=== PATIENT | male | born 1955 | race Caucasian/White ===

== ENCOUNTER 2017-04-16 09:57 | Emergency (ER) | payer BC ==
[~2017-04-16] VITALS: Ht 167.6 cm; Wt 58.0 kg
[2017-04-16 10:03] VITALS: TEMP 36.7; O2SAT 98; Ht 167.6 cm; Wt 58.0 kg
[2017-04-16] MEDS ORDERED: PROPARACAINE HCL 0.5% OP SOLN 15 ML BTL OP STA (10:23)
[2017-04-16] MEDS ORDERED: CIPROFLOXACIN HCL 0.3% OP SOLN 2.5 ML BTL OP STA (10:38)
[2017-04-16] MEDS ORDERED: DIPHTHERIA/TETANUS/PERTUSSIS 0.5 ML SYR/VIAL IM. ONE (10:45)
--- NOTE | 2017-04-16 11:36 | EMERGENCY ROOM VISIT NOTE ---
ED Visit Note First contact with patient: 10:10 CHIEF COMPLAINT: Eye pain HISTORY OF PRESENT ILLNESS: This 61-year-old male patient presents to the emergency department complaining of pain in the right eye that started last night. There has been a constant moderate pain and irritation, redness and tearing in the eye. There is a mild blurring of vision at times and light bothers the eye. The vision has not been decreased over all. The patient does not wear glasses or wear contacts. The patient rates the pain as itching and discomfort and for/10. The patient has not had previous injuries to this eye. Tetanus shot is not up to date. REVIEW OF SYSTEMS: A 6 system review of systems was completed with positives and pertinent negatives listed in the HPI. ALLERGIES: See chart MEDICATIONS: See Chart PMH: See chart SOCIAL HISTORY: See chart PHYSICAL EXAM: Vital Signs: Reviewed Nurse's notes, vital signs stable. Visual acuity 20/40 and left eye, 20/50 in right eye, 20/50 in both eyes. GENERAL: This is a pleasant and cooperative gentleman, in no acute distress, but who is uncomfortable from the eye problem. Well-developed well-nourished. EYES: The pupils are equal round and reactive to light and accommodation. EOMs are full and without tenderness. There is discharge of clear tears from the right eye which is injected. There is photophobia in the right eye. There is a small vera of appears to be dirt found under the eyelid after lid eversion, this was easily removed and patient reported improved discomfort immediately after the foreign body was removed. Funduscopic exam reveals no hemorrhages, papilledema , or other abnormalities. No foreign body was seen embedded in the cornea under slit lamp exam. The cornea was clear and no hyphema was seen. Fluorescein uptake was observed with ultraviolet light significant for a corneal abrasion at 6 o'clock position overlying the iris. EMERGENCY DEPARTMENT COURSE: I examined the patient. Alcaine 2 drops were placed in the patient's right eye. A slit lamp exam was performed as above. Ciloxan two drops was placed in the patient's right eye. The patient's tetanus was updated. Patient was noted to be hypertensive on vital signs today, he currently does not follow with a PCP, but states he is working on getting one where he lives. I instructed him to continue this process and to follow up regarding his blood pressure as soon as possible. The patient was discharged home in good condition and ambulatory. Current/Historical Medications No Active Prescriptions or Reported Meds Allergies Coded Allergies: No Known Allergies (Unverified , 12/10/13) Vital Signs Date Time Temp Pulse Resp B/P (MAP) Pulse Ox O2 Delivery O2 Flow Rate FiO2 04/16/17 11:40 88 16 157/81 04/16/17 10:03 36.7 77 18 166/91 98 Room Air Medications Administered Medications (Trade) Dose Ordered Sig/Yadi Route Start Time Stop Time Status Last Admin Dose Admin Proparacaine HCl (Alcaine 0.5% Oph Soln) 2 drops NOW STAT OP 04/16/17 10:23 04/16/17 10:24 DC 04/16/17 10:28 2 DROPS Ciprofloxacin HCl (Ciprofloxacin 0.3% Op Soln) 2 drops NOW STAT OP 04/16/17 10:38 04/16/17 10:40 DC 04/16/17 11:04 2 DROPS Diphtheria/ Pertussis/Tetanus Vacc (Adacel Inj) 0.5 ml ONCE ONCE IM. 04/16/17 10:45 04/16/17 10:46 DC 04/16/17 11:02 0.5 ML Departure Information Impression Primary Impression: Right corneal abrasion Dispostion Home / Self-Care Condition GOOD Prescriptions No Active Prescriptions or Reported Meds Referrals No Doctor, Assigned (PCP) Forms WORK / SCHOOL INSTRUCTIONS, HOME CARE DOCUMENTATION FORM, IMPORTANT VISIT INFORMATION Patient Instructions ED Eye Injury Corneal Abrasion, [facility] Additional Instructions DISCHARGE INSTRUCTIONS AND TREATMENT: Use Ciloxin two drops in the right eye every two hours while awake for two days ; then two drops every four hours while awake for three days. Use Ibuprofen 600 mg or Tylenol 1000 mg every 6 hrs as needed for moderate pain. Compresses to the eye for comfort. Return to the ED or see your eye doctor in 24-48 hours for a recheck. Return to the ED for increasing pain or changes in vision. Call to get an appointment with PCP to have your blood pressure rechecked, as it was high today in the emergency department. Problem Qualifiers Primary Impression: Right corneal abrasion Encounter type: initial encounter Qualified Codes: S05.01XA - Injury of conjunctiva and corneal abrasion without foreign body, right eye, initial encounter
[2017-04-16 11:40] VITALS: BP 157/81; PULSE 88
== END 2017-04-16 11:52 | disposition home or self-care (01) ==
LOC: C.EDB 09:59
DX: S05.01XA Injury of conjunctiva and corneal abrasion without foreign body, right eye, initial encounter (principal); X58.XXXA Exposure to other specified factors, initial encounter

== ENCOUNTER 2017-06-05 17:38 | Emergency (ER) | payer BC ==
[~2017-06-05] VITALS: Ht 167.6 cm; Wt 58.9 kg
[2017-06-05 17:45] VITALS: TEMP 36.8; O2SAT 97
[2017-06-05] MEDS ORDERED: SODIUM CHLORIDE 0.9% 1000ML 1,000 ML IV STA (18:13)
[2017-06-05 18:21] VITALS: Ht 167.6 cm; Wt 58.9 kg
[2017-06-05 18:51] LABS: BASO % 0.1 %; BASO ABS # 0.01 K/uL (0-0.2); COMPLETE YES; EOS % 0.1 %; LYMPH % 6.9 %; LYMPH ABS # 0.56 K/uL (1.2-3.4); MEAN CELL VOLUME 84.6 fL (80-100); MEAN CORPUSCULAR HEMOGLOBIN 29.4 pg (25-34); MEAN CORPUSCULAR HGB CONC 34.8 g/dl (32-36); MEAN PLATELET VOLUME 10.4 fL (7.4-10.4); MONO % 3.8 %; NEUT % 89.1 %; PLATELET COUNT 261 K/uL (130-400); RED BLOOD COUNT 4.73 M/uL (4.7-6.1); WHITE BLOOD COUNT 8.15 K/uL (4.8-10.8)
--- NOTE | 2017-06-05 18:51 | DIAGNOSTIC IMAGING REPORT ---
HEAD CT NONCONTRAST CT DOSE: 1375.95 mGy.cm HISTORY: Headache. Dizziness. Stroke TECHNIQUE: Multiaxial CT images of the head were performed without the use of intravenous contrast. Automated exposure control was utilized for this study. A dose lowering technique was utilized adhering to the principles of ALARA. Comparison: None. Findings: Small retention cyst within the left maxillary sinus. The mastoid air cells are clear. The calvarium and skull base are intact. The ventricles and sulci are within normal limits. There is no mass, hematoma, midline shift, or acute infarct. Impression: No acute intracranial abnormality. Electronically signed by: Noé Mccoy M.D. 06/05/2017 6:49 PM Dictated Date/Time: 06/05/2017 6:46 PM
--- NOTE | 2017-06-05 18:56 | EMERGENCY ROOM VISIT NOTE ---
History Report prepared by Andrei: Oneyda Morales Under the Supervision of: Dr. Dannie Dominguez M.D. First contact with patient: 18:03 Chief Complaint: DIZZY Stated Complaint: HEADACHE/DIZZY Nursing Triage Summary: Patient presents from home via [facility] with c/o dizziness States dizziness began at 1030 this morning Had a headache around 1300 and took advil with relief of symptoms Dizziness is constant History of Present Illness The patient is a 61 year old male who presents to the Emergency Room with complaints of persistent dizziness that began around 8 hours prior to arrival. The patient states that when he woke today around 1030 he felt dizzy. He describes his dizziness as a lightheaded and not as a room spinning sensation. The patient states that his symptoms have been persistent throughout the day and denies any modifying factors. The patient's family reports that the patient has been staggering with his gait and notes that he has been bumping into things. The patient states that he notices his symptoms at all times. He states that this happened once in the past, noting that it was alleviated with vomiting. The patient denies any new cough, congestion, nausea, vomiting, diarrhea, or urinary symptoms. He states that he has not eaten or drank anything today. The patient additionally notes a headache that was alleviated with Advil. He denies being on any anti-coagulants or on any medications. The patient denies any fall or trauma. He denies any previous stroke or history of vertigo. The patient states that he is a nonsmoker, but states that he uses smokeless tobaccos. He denies any alcohol use. The patient's family states that the patient has had many recent tick bites, and requests that he is tested for Lyme disease. Source of History: patient, family () Onset: 8 hours prior to arrival Position: other (global) Quality: other (dizziness) Timing: other (persistent) Associated Symptoms: + headache, No cough, No nausea, No diarrhea, No urinary symptoms Note: Associated Symptoms: lightheadedness Review of Systems See HPI for pertinent positives & negatives. A total of 10 systems reviewed and were otherwise negative. Past Medical & Surgical Medical Problems: (1) No pertinent past medical history Surgical Problems: (1) History of inguinal herniorrhaphy Family History Diabetes mellitus Social History Smoking Status: Current Every Day Smoker Alcohol Use: none Drug Use: none Marital Status: Housing Status: lives with family Occupation Status: employed Current/Historical Medications Scheduled Doxycycline Hyclate (Vibramycin), 100 MG PO BID Scheduled PRN Meclizine HCl (Meclizine HCl), 1 TAB PO Q6H PRN for Dizziness or Vertigo Allergies Coded Allergies: No Known Allergies (Unverified , 12/10/13) Physical Exam Vital Signs Date Time Temp Pulse Resp B/P (MAP) Pulse Ox O2 Delivery O2 Flow Rate FiO2 06/05/17 23:49 65 18 154/51 98 06/05/17 21:35 64 17 145/64 97 Room Air 06/05/17 21:01 62 18 142/62 96 Room Air 06/05/17 20:03 58 15 134/58 98 Room Air 06/05/17 19:03 60 21 134/70 98 Room Air 06/05/17 18:01 60 19 152/66 96 Room Air 06/05/17 17:58 73 168/70 68 177/81 96 159/76 06/05/17 17:47 80 06/05/17 17:45 97 Room Air 06/05/17 17:45 36.8 73 16 168/70 97 Room Air Physical Exam GENERAL: Patient is in no acute distress. HEENT: No acute trauma, normocephalic atraumatic, mucous membranes moist, no nasal congestion, no scleral icterus. No nystagmus. NECK: No stridor, no adenopathy, no meningismus, trachea is midline. LUNGS: Clear to auscultation bilaterally, no wheeze, no rhonchi, breath sounds equal. HEART: Without murmurs gallops or rubs, regular rate and rhythm. ABDOMEN: Soft, nontender, bowel sounds positive, no hernias, no peritonitis. EXTREMITIES: No cyanosis or edema, full range of motion of all the joints without pain or difficulty, no signs for acute trauma. NEUROLOGIC: Oriented x 3, no acute motor or sensory deficits, no focal weakness. No cerebellar deficit, no pronator drift. No speech slur or facial droop. SKIN: No rash, no jaundice, no diaphoresis. Medical Decision & Procedures ER Provider Diagnostic Interpretation: Orthostatic vital signs are positive with a slight decrease in blood pressure that is consistent with dehydration. Radiology results as stated below per my review and radiologist interpretation: HEAD CT NONCONTRAST CT DOSE: 1375.95 mGy.cm HISTORY: Headache. Dizziness. Stroke TECHNIQUE: Multiaxial CT images of the head were performed without the use of intravenous contrast. Automated exposure control was utilized for this study. A dose lowering technique was utilized adhering to the principles of ALARA. Comparison: None. Findings: Small retention cyst within the left maxillary sinus. The mastoid air cells are clear. The calvarium and skull base are intact. The ventricles and sulci are within normal limits. There is no mass, hematoma, midline shift, or acute infarct. Impression: No acute intracranial abnormality. Electronically signed by: Noé Mccoy M.D. 06/05/2017 6:49 PM Dictated Date/Time: 06/05/2017 6:46 PM CHEST ONE VIEW PORTABLE CLINICAL HISTORY: Cough. COMPARISON STUDY: Chest radiograph December 10, 2013. FINDINGS: Lung volumes are normal. No pneumothorax or pleural effusion is present. There is no evidence of pulmonary edema. Minimal left basilar opacity suggests atelectasis. Cardiomediastinal silhouette is normal. There is a probable calcified right upper lobe nodule. IMPRESSION: No acute cardiopulmonary findings. Electronically signed by: Manuel Colon M.D. 06/05/2017 7:02 PM Dictated Date/Time: 06/05/2017 7:01 PM MRI OF THE BRAIN WITHOUT AND WITH IV CONTRAST CLINICAL HISTORY: Dizziness. Evaluate for stroke. COMPARISON STUDY: Head CT June 05, 2017. TECHNIQUE: Utilizing a 1.5 Kusum magnet and dedicated coil, multiplanar, multiecho imaging of the brain was performed pre and postcontrast administration. IV administration of 5.5 mL of Gadavist contrast was uneventful. FINDINGS: There are no areas of restricted diffusion. No acute intracranial hemorrhage, midline shift or mass effect is present. Brain volume is normal. Ventricular system is normal. Basilar cisterns are patent. There are no extra-axial collections. Flow-voids for the major intracranial vessels are present. There is no intracranial mass or pathologic enhancement. Postcontrast images are mildly compromised by motion artifact. No areas of significant signal abnormality are identified. A small mucous retention cyst within the left maxillary sinus is noted. Calvarial signal is normal. IMPRESSION: Unremarkable MRI of the brain. Electronically signed by: Manuel Colon M.D. 06/05/2017 10:45 PM Dictated Date/Time: 06/05/2017 10:41 PM Laboratory Results 06/05/17 18:25 Red Blood Count 4.73, Mean Corpuscular Volume 84.6, Mean Corpuscular Hemoglobin 29.4, Mean Corpuscular Hemoglobin Concent 34.8, Mean Platelet Volume 10.4, Neutrophils (%) (Auto) 89.1, Lymphocytes (%) (Auto) 6.9, Monocytes (%) (Auto) 3.8, Eosinophils (%) (Auto) 0.1, Basophils (%) (Auto) 0.1, Neutrophils # (Auto) 7.26, Lymphocytes # (Auto) 0.56, Monocytes # (Auto) 0.31, Eosinophils # (Auto) 0.01, Basophils # (Auto) 0.01 06/05/17 18:25 Test 06/05/17 18:25 White Blood Count 8.15 K/uL (4.8-10.8) Red Blood Count 4.73 M/uL (4.7-6.1) Hemoglobin 13.9 g/dL (14.0-18.0) Hematocrit 40.0 % (42-52) Mean Corpuscular Volume 84.6 fL (80-100) Mean Corpuscular Hemoglobin 29.4 pg (25-34) Mean Corpuscular Hemoglobin Concent 34.8 g/dl (32-36) Platelet Count 261 K/uL (130-400) Mean Platelet Volume 10.4 fL (7.4-10.4) Neutrophils (%) (Auto) 89.1 % Lymphocytes (%) (Auto) 6.9 % Monocytes (%) (Auto) 3.8 % Eosinophils (%) (Auto) 0.1 % Basophils (%) (Auto) 0.1 % Neutrophils # (Auto) 7.26 K/uL (1.4-6.5) Lymphocytes # (Auto) 0.56 K/uL (1.2-3.4) Monocytes # (Auto) 0.31 K/uL (0.11-0.59) Eosinophils # (Auto) 0.01 K/uL (0-0.5) Basophils # (Auto) 0.01 K/uL (0-0.2) RDW Standard Deviation 40.5 fL (36.4-46.3) RDW Coefficient of Variation 13.1 % (11.5-14.5) Immature Granulocyte % (Auto) 0.0 % Immature Granulocyte # (Auto) 0.00 K/uL (0.00-0.02) Prothrombin Time 10.7 SECONDS (9.0-12.0) Prothromb Time International Ratio 1.0 (0.9-1.1) Activated Partial Thromboplast Time 29.5 SECONDS (21.0-31.0) Partial Thromboplastin Ratio 1.1 Anion Gap 8.0 mmol/L (3-11) Est Creatinine Clear Calc Drug Dose 52.5 ml/min Estimated GFR () 74.1 Estimated GFR (Non- 64.0 BUN/Creatinine Ratio 16.2 (10-20) Calcium Level 9.3 mg/dl (8.5-10.1) Magnesium Level 2.0 mg/dl (1.8-2.4) Total Creatine Kinase 213 U/L (39-308) Creatine Kinase MB 2.8 ng/ml (0.5-3.6) Creatine Kinase MB Ratio 1.3 (0-3.0) Troponin I < 0.015 ng/ml (0-0.045) Thyroid Stimulating Hormone (TSH) 0.903 uIu/ml (0.300-4.500) Free Thyroxine 1.36 ng/dl (0.80-1.60) Lyme Disease IgG Antibody POS (NEG) Laboratory results reviewed by me. Medications Administered Medications (Trade) Dose Ordered Sig/Yadi Route Start Time Stop Time Status Last Admin Dose Admin Sodium Chloride 1,000 ml @ 999 mls/hr Q1H1M STAT IV 06/05/17 18:13 06/05/17 19:13 DC 06/05/17 18:13 999 MLS/HR Ceftriaxone Sodium (Rocephin Inj) 1 gm NOW STAT IV 06/05/17 19:48 06/05/17 19:49 DC 06/05/17 20:03 1 GM Meclizine HCl (Antivert 25MG Home Pack) 1 homepack UD ONCE PO 06/05/17 23:45 06/05/17 23:46 DC 06/05/17 23:43 1 HOMEPACK ECG Indication: other (dizziness) Rate (beats per minute): 67 Rhythm: normal sinus Findings: no acute ischemic change, no ectopy ED Course 1806: The patient was evaluated in room C2B. A complete history and physical exam was performed. 1812: Ordered Sodium Chloride 1000 ml @ 999 mls/hr IV. 1947: Ordered Rocephin Inj 1 gm IV. 1943: I reevaluated the patient and he feels the same. I discussed all the exam findings with him and I discussed the treatment plan. He verbalized complete understanding and agreement. He will be evaluated for further treatment. 1948: I discussed the patients case with Dr. Arriaza [facility]. He is going to evaluate the patient for further treatment. 2327: I spoke to Dr. Madden, [facility] Resident. He states that the patient is okay to go home. 7: I reevaluated the patient and he is doing well. He is in agreement with the new treatment plan. He is ready to go home. 5: Ordered Meclizine HCl 1 homepack PO. Medical Decision The patient is a 61 year old male who presents to the ED with complaints of dizziness. Differential diagnoses considered include vertigo, stroke, dehydration, electrolyte imbalance, UTI, anemia, infection. There is no leukocytosis or concerning anemia. No significant electrolyte abnormality, kidney failure or hepatitis. Urinalysis does not show infection. Orthostatic vital signs were slightly positive. EKG shows a normal sinus rhythm , no acute ischemia. Chest film does not show pneumonia or CHF. Brain CT shows no acute bleed or mass effect. Patient appeared to be in a euthyroid state. Cardiac enzyme testing times one is not consistent with acute cardiac injury. On exam, the patient denied any focal neurologic deficits. The patient received IV saline. I did order for a Lyme test at the family's request, this returned positive. A dose of IV ceftriaxone was given. The patient presents with strokelike symptoms. I did think further workup was needed. He was seen by the on-call hospitalist. The hospitalist ordered for a brain MRI. The MRI did not show evidence for stroke. The patient was feeling better and the hospital service felt the patient could be discharged home with outpatient follow-up. The patient will be discharged with meclizine for possible vertigo. He was given a prescription for doxycycline for the positive Lyme testing. Patient was encouraged to return here for worsening symptoms or if not improving. Medication Reconcilliation Current Medication List: was personally reviewed by me Blood Pressure Screening Patient's blood pressure: Elevated blood pressure Blood pressure disposition: Elevated BP felt to be situational, Did not require urgent referral Consults Time Called: 1945 Consulting Physician: SHEA Dale Returned Call: 1948 I discussed the patients case with SHEA Dale. He is going to evaluate the patient for further treatment. Impression Primary Impression: Stroke-like symptoms Additional Impression: Lyme disease Scribe Attestation The scribe's documentation has been prepared under my direction and personally reviewed by me in its entirety. I confirm that the note above accurately reflects all work, treatment, procedures, and medical decision making performed by me. Departure Information Dispostion Home / Self-Care Prescriptions Doxycycline Hyclate (VIBRAMYCIN) 100 Mg Cap 100 MG PO BID for 21 Days, #42 CAP Prov: Dannie Dominguez M.D. 06/05/17 Meclizine HCl (Meclizine HCl) 25 Mg Tab 1 TAB PO Q6H Y for Dizziness or Vertigo, #12 TAB 1 Refill Prov: Dannie Dominguez M.D. 06/05/17 Referrals No Doctor, Assigned (PCP) Forms HOME CARE DOCUMENTATION FORM, IMPORTANT VISIT INFORMATION Patient Instructions My [facility] Additional Instructions doxycycline 2x per day for 3 weeks rest fluids meclizine as needed every 6 hours for dizziness be sure to get a [facility] doctor followup return if worsening Stroke History Time Last Known Well 8 hours ago Stroke t-PA Criteria Reviewed Does NOT meet criteria for t-PA Reason t-PA Not Given Contraindicated Problem Qualifiers
[2017-06-05 19:00] LABS: PARTIAL THROMBOPLASTIN RATIO 1.1; PROTHROMBIN TIME (PATIENT) 10.7 SECONDS (9.0-12.0)
--- NOTE | 2017-06-05 19:03 | DIAGNOSTIC IMAGING REPORT ---
CHEST ONE VIEW PORTABLE CLINICAL HISTORY: Cough. COMPARISON STUDY: Chest radiograph December 10, 2013. FINDINGS: Lung volumes are normal. No pneumothorax or pleural effusion is present. There is no evidence of pulmonary edema. Minimal left basilar opacity suggests atelectasis. Cardiomediastinal silhouette is normal. There is a probable calcified right upper lobe nodule. IMPRESSION: No acute cardiopulmonary findings. Electronically signed by: Manuel Colon M.D. 06/05/2017 7:02 PM Dictated Date/Time: 06/05/2017 7:01 PM
[2017-06-05 19:12] LABS: BLOOD UREA NITROGEN 19 mg/dl (7-18); BUN/CREATININE RATIO 16.2 (10-20); CALCIUM 9.3 mg/dl (8.5-10.1); CARBON DIOXIDE 25 mmol/L (21-32); CHLORIDE 105 mmol/L (98-107); GLUCOSE 92 mg/dl (70-99); POTASSIUM 4.5 mmol/L (3.5-5.1); SODIUM 138 mmol/L (136-145)
[2017-06-05 19:23] LABS: CKMB/CK RATIO 1.3 (0-3.0); THYROID STIMULATING HORMONE 0.903 uIu/ml (0.300-4.500)
[2017-06-05 19:40] LABS: LYME DISEASE AB IGG POS (NEG); LYME DISEASE AB IGM EQUIVOCAL (NEG)
[2017-06-05] MEDS ORDERED: CEFTRIAXONE SOD INJ 1 GM ADDVIAL IV STA (19:48)
--- NOTE | 2017-06-05 22:46 | DIAGNOSTIC IMAGING REPORT ---
MRI OF THE BRAIN WITHOUT AND WITH IV CONTRAST CLINICAL HISTORY: Dizziness. Evaluate for stroke. COMPARISON STUDY: Head CT June 05, 2017. TECHNIQUE: Utilizing a 1.5 Kusum magnet and dedicated coil, multiplanar, multiecho imaging of the brain was performed pre and postcontrast administration. IV administration of 5.5 mL of Gadavist contrast was uneventful. FINDINGS: There are no areas of restricted diffusion. No acute intracranial hemorrhage, midline shift or mass effect is present. Brain volume is normal. Ventricular system is normal. Basilar cisterns are patent. There are no extra-axial collections. Flow-voids for the major intracranial vessels are present. There is no intracranial mass or pathologic enhancement. Postcontrast images are mildly compromised by motion artifact. No areas of significant signal abnormality are identified. A small mucous retention cyst within the left maxillary sinus is noted. Calvarial signal is normal. IMPRESSION: Unremarkable MRI of the brain. Electronically signed by: Manuel Colon M.D. 06/05/2017 10:45 PM Dictated Date/Time: 06/05/2017 10:41 PM
--- NOTE | 2017-06-05 23:40 | Medical Consult ---
Consultation Date of Consultation: Jun 05, 2017. Attending Physician: Reason for Consultation: Weakness, Staggering History of Present Illness The patient is a pleasant 64 year old male who has no known medical history and is hard of hearing who presents for an acute episode of dizziness. The patient is accompanied at the bedside by his 2 sisters. The patients states that he was in his usual state of health last night before going to bed. This morning when he woke, he states that he began to feel lightheaded and dizziness. He had difficulty elaborating on what he meant by dizziness, and did not say specifically that he felt the room spinning around him. He denies any ringing in the ears or any acute changes in his hearing. His niece felt this morning that he was staggering around the house, but it is uncertain if he was favoring one particular side. He also states he felt mild weakness but cannot elaborate on which side. He denies any changes in sensation in the extremities or difficulty with speech or comprehension. He has not had any fevers, chills or sweats. He has had a generally good appetite but has not eaten or drank much today. He denies any use of alcohol. The patient does not currently follow with a primary care provider so is uncertain of other medical conditions. Past Medical/Surgical History Medical Problems: (1) Lyme disease Status: Acute (2) Right corneal abrasion Status: Acute (3) Stroke-like symptoms Status: Acute Family History Diabetes mellitus Cancer Type 2 Diabetes Social History Smoking Status: Current Every Day Smoker Smokeless Tobacco Use: Yes (Chews tobacco) Alcohol Use: none Drug Use: none Marital Status: Housing Status: lives with family Occupation Status: employed Allergies Coded Allergies: No Known Allergies (Unverified , 12/10/13) Home Medications None Current Inpatient Medications IV Cetriaxone 1 g Review of Systems A 10 point review of systems was negative unless stated above. Physical Exam Date Time Temp Pulse Resp B/P (MAP) Pulse Ox O2 Delivery O2 Flow Rate FiO2 06/05/17 21:35 64 17 145/64 97 Room Air 06/05/17 21:01 62 18 142/62 96 Room Air 06/05/17 20:03 58 15 134/58 98 Room Air 06/05/17 19:03 60 21 134/70 98 Room Air 06/05/17 18:01 60 19 152/66 96 Room Air 06/05/17 17:58 73 168/70 68 177/81 96 159/76 06/05/17 17:47 80 06/05/17 17:45 97 Room Air 06/05/17 17:45 36.8 73 16 168/70 97 Room Air General Appearance: WD/WN, no apparent distress Head: normocephalic, atraumatic Eyes: normal inspection, EOMI ENT: hearing grossly normal, pharynx normal Neck: supple, no adenopathy, no JVD Respiratory/Chest: lungs clear, no respiratory distress Cardiovascular: regular rate, rhythm, no gallop, no murmur Abdomen/GI: normal bowel sounds, non tender, soft Back: no CVA tenderness, no muscle spasm Extremities/Musculoskelatal: no calf tenderness, no pedal edema Neurologic/Psych: vegetable sorter II-XII nml as tested, alert, normal mood/affect, oriented x 3 Skin: normal color, warm/dry, no rash Lymphatic: no adenopathy Laboratory Results Last 24 Hours Test 06/05/17 18:25 White Blood Count 8.15 K/uL Red Blood Count 4.73 M/uL Hemoglobin 13.9 g/dL Hematocrit 40.0 % Mean Corpuscular Volume 84.6 fL Mean Corpuscular Hemoglobin 29.4 pg Mean Corpuscular Hemoglobin Concent 34.8 g/dl Platelet Count 261 K/uL Mean Platelet Volume 10.4 fL Neutrophils (%) (Auto) 89.1 % Lymphocytes (%) (Auto) 6.9 % Monocytes (%) (Auto) 3.8 % Eosinophils (%) (Auto) 0.1 % Basophils (%) (Auto) 0.1 % Neutrophils # (Auto) 7.26 K/uL Lymphocytes # (Auto) 0.56 K/uL Monocytes # (Auto) 0.31 K/uL Eosinophils # (Auto) 0.01 K/uL Basophils # (Auto) 0.01 K/uL RDW Standard Deviation 40.5 fL RDW Coefficient of Variation 13.1 % Immature Granulocyte % (Auto) 0.0 % Immature Granulocyte # (Auto) 0.00 K/uL Prothrombin Time 10.7 SECONDS Prothromb Time International Ratio 1.0 Activated Partial Thromboplast Time 29.5 SECONDS Partial Thromboplastin Ratio 1.1 Sodium Level 138 mmol/L Potassium Level 4.5 mmol/L Chloride Level 105 mmol/L Carbon Dioxide Level 25 mmol/L Anion Gap 8.0 mmol/L Blood Urea Nitrogen 19 mg/dl Creatinine 1.20 mg/dl Est Creatinine Clear Calc Drug Dose 52.5 ml/min Estimated GFR () 74.1 Estimated GFR (Non- 64.0 BUN/Creatinine Ratio 16.2 Random Glucose 92 mg/dl Calcium Level 9.3 mg/dl Magnesium Level 2.0 mg/dl Total Creatine Kinase 213 U/L Creatine Kinase MB 2.8 ng/ml Creatine Kinase MB Ratio 1.3 Troponin I < 0.015 ng/ml Thyroid Stimulating Hormone (TSH) 0.903 uIu/ml Free Thyroxine 1.36 ng/dl Lyme Disease IgG Antibody POS Lyme Disease IgM Antibody EQUIVOCAL MRI OF THE BRAIN WITHOUT AND WITH IV CONTRAST CLINICAL HISTORY: Dizziness. Evaluate for stroke. COMPARISON STUDY: Head CT June 05, 2017. TECHNIQUE: Utilizing a 1.5 Kusum magnet and dedicated coil, multiplanar, multiecho imaging of the brain was performed pre and postcontrast administration. IV administration of 5.5 mL of Gadavist contrast was uneventful. FINDINGS: There are no areas of restricted diffusion. No acute intracranial hemorrhage, midline shift or mass effect is present. Brain volume is normal. Ventricular system is normal. Basilar cisterns are patent. There are no extra-axial collections. Flow-voids for the major intracranial vessels are present. There is no intracranial mass or pathologic enhancement. Postcontrast images are mildly compromised by motion artifact. No areas of significant signal abnormality are identified. A small mucous retention cyst within the left maxillary sinus is noted. Calvarial signal is normal. IMPRESSION: Unremarkable MRI of the brain. Electronically signed by: Manuel Colon M.D. 06/05/2017 10:45 PM Dictated Date/Time: 06/05/2017 10:[address] CT DOSE: 1375.95 mGy.cm HISTORY: Headache. Dizziness. Stroke TECHNIQUE: Multiaxial CT images of the head were performed without the use of intravenous contrast. Automated exposure control was utilized for this study. A dose lowering technique was utilized adhering to the principles of ALARA. Comparison: None. Findings: Small retention cyst within the left maxillary sinus. The mastoid air cells are clear. The calvarium and skull base are intact. The ventricles and sulci are within normal limits. There is no mass, hematoma, midline shift, or acute infarct. Impression: No acute intracranial abnormality. Electronically signed by: Noé Mccoy M.D. 06/05/2017 6:49 PM Dictated Date/Time: 06/05/2017 6:46 PM Assessment & Plan The patient is a pleasant 61-year-old male, without any known condition studies as he does not have a primary care provider, who presents with transient weakness this morning which is now resolved. The patients Lyme screen is presumed Lyme positive based on history of exposure to ticks, as well as serologies that are positive for IgG and an equivocal IgM with follow-up Western blot pending. The patient looks generally quite well at the bedside, his neurological exam in the emergency room is completely normal and CT and MRI of the brain of both been normal. Our impression at this time is that his symptoms are most likely due to Lyme disease. He was given a dose of IV ceftriaxone in the emergency room. Our recommendations are as follows - The patient can be discharged home, with treatment for Lyme (doxycycline 100 mg twice a day by mouth 21 days) The patient has been advised to take doxycycline with meals The patient has been advised to avoid prolonged sun exposure and use sunscreen when outdoors due to risk of photosensitivity - The patient should establish a primary care provider. I've given contact information for [facility] (Dr. Yadiel Madden) The patient has been advised to make a follow-up appointment for one week, to ensure that he does not have resolution of symptoms Attending Addendum: I have physically seen and examined this patient, have supervised the medical residents activities, and agree with the H&P as noted above with the following exceptions as noted. The patient presents with symptoms of generalized weakness, fatigue, with an episode of imbalance, with some occasional memory dysfunction and brain fog. The patient denies chest pain, palpitations, shortness of breath, cough, lower extremity swelling, vision change, hearing change, sore throat, fevers, chills, sweats, weight change, nausea, vomiting, abdominal pain, pelvic pain, blood in urine or stool, dysuria, urinary frequency or urgency, rash, abnormal bruising or bleeding, focal weakness, numbness or tingling in arms or legs, night sweats, or allergy symptoms. The review of systems is otherwise negative other than for that already noted above, and at least 10 systems have been reviewed. The patient is awake, well-developed and adequately nourished, alert and oriented 3, normocephalic and atraumatic, lying in bed and in no acute distress. HEENT--PERRL, EOMI, mucous membranes and oropharynx dry. Neck--supple, no JVD or bruits, thyroid normal, trachea midline, no adenopathy. Heart--normal S1 and S2, no extra beats, no murmurs, rubs or gallops. Lungs--clear bilaterally with good air movement, no respiratory distress, no accessory muscle use. Abdomen--normal bowel sounds and soft, nontender and nondistended, no hernias or masses, no organomegaly. Extremities--no cyanosis, clubbing or edema. There are good distal pulses b/l. Dermatologic--normal skin turgor, normal color, warm and dry, no abnormal lymph nodes, no rash. Neurologic--cranial nerves II through XII grossly intact, motor and sensory examination normal. Rheumatologic--normal range of motion, nontender, muscles and joints. Psychiatric--normal affect. Assessment and Plan: 1. Lyme Disease--the patient had a CT of the head without contrast normal. We then ordered an MRI of the brain combo, to assess for possible issue such as acoustic neuroma, demyelinating disease, CVA among others. His physical examination was unremarkable. She was given ceftriaxone 1 g IV in the emergency department. The patient preferred to go home, and with a negative workup other than abnormal Lyme test, he was felt to be safe to be discharged to home in the company of his family. He will be placed on doxycycline 100 mg by mouth twice a day for 21 days. He is warned of the most common side effects such as photosensitivity, GI disturbance, and the suggestion to take probiotics on a daily basis. He was advised to establish care and follow-up with a PCP within the next week.
[2017-06-05] MEDS ORDERED: DOXY100C PO (23:41)
[2017-06-05] MEDS ORDERED: ANT25 PO (23:41)
[2017-06-05] MEDS ORDERED: MECLIZINE HCL 25MG HOME PACK PO ONE (23:45)
[2017-06-05 23:49] VITALS: BP 154/51; PULSE 65; O2SAT 98
--- NOTE | 2017-06-11 16:19 | Pharmacy Progress Note ---
ED Pharmacist Culture FollowUp Date of Service: Jun 11, 2017. Patient's Western Blot IgG and IgM could not be performed as the blood sample was inadequate. The patient was dx with Lyme Dz based upon initial IgG and IgM screenings and was placed on Doxycycline 100mg PO BID x 21 days. I discussed the case with Dr Dominguez. The plan is to contact the patient and explain that the confirmation could not be performed but recommend he complete the full course of ABX therapy. He can have his PCP confirm the dx with a repeat Western Blot. I attempted to contact the patient: [phone], however there was no answer but I did leave a message asking he return my call.
== END 2017-06-05 23:50 | disposition home or self-care (01) ==
LOC: EDBD 17:38 → C.EDC 17:40
DX: A69.20 Lyme disease, unspecified (principal); F17.220 Nicotine dependence, chewing tobacco, uncomplicated; Z83.3 Family history of diabetes mellitus; F17.210 Nicotine dependence, cigarettes, uncomplicated; Z80.9 Family history of malignant neoplasm, unspecified